=== PATIENT | female | born 1985 | race Caucasian/White ===

== ENCOUNTER 2017-10-24 18:01 | Emergency (ER) | payer MEDICAID ==
--- NOTE | 2017-10-24 19:00 | ER Document Report ---
ED Medical Screen (RME) - General Chief Complaint: Sore Throat Stated Complaint: SORE THROAT/ FEVERS Time Seen by Provider: 10/24/17 18:57 Notes: pt c/o sore throat, fever and vomiting x 2 days. Hx strep, is supposed to get tonsillectomy but is afraid to have done. Took zofran at home. I have greeted and performed a rapid initial assessment of this patient. A comprehensive ED assessment and evaluation of the patient, analysis of test results and completion of the medical decision making process will be conducted by additional ED providers. TRAVEL OUTSIDE OF THE [place] IN LAST 30 DAYS: No - Related Data Allergies/Adverse Reactions: Amphetamine Aspartate * [From Adderall] Allergy (Verified 10/24/17 18:58) THROAT CLOSED UP amphetamine sulfate [From Adderall] Allergy (Verified 10/24/17 18:58) THROAT CLOSED UP dextroamphetamine [From Adderall] Allergy (Verified 10/24/17 18:58) THROAT CLOSED UP Past Medical History - Past Medical History Cardiac Medical History: Denies: Hx Heart Attack, Hx Hypertension Pulmonary Medical History: Reports: Hx Pneumonia - PTSD Denies: Hx Asthma Neurological Medical History: Reports: Hx Seizures - Epilepsy GI Medical History: Denies: Hx Hepatitis, Hx Hiatal Hernia, Hx Ulcer Psychiatric Medical History: Reports: Hx Attention Deficit Hyperactivity Disorder Infectious Medical History: Denies: Hx Hepatitis Past Surgical History: Denies: Hx Hysterectomy, Hx Mastectomy, Hx Open Heart Surgery, Hx Pacemaker - Immunizations Hx Diphtheria, Pertussis, Tetanus Vaccination: No Physical Exam - Vital signs Vitals: Temp Pulse Resp BP Pulse Ox 100.6 F H 121 H 18 125/92 H 98 10/24/17 18:09 10/24/17 18:09 10/24/17 18:09 10/24/17 18:09 10/24/17 18:09 Course - Vital Signs Vital signs: Temp Pulse Resp BP Pulse Ox 100.6 F H 121 H 18 125/92 H 98 10/24/17 18:09 10/24/17 18:09 10/24/17 18:09 10/24/17 18:09 10/24/17 18:09
[2017-10-24] MEDS ORDERED: ONDANSETRON 4 MG TAB.RAPDIS PO ONE (19:50)
[2017-10-24] MEDS ORDERED: NORMAL SALINE 1000 ML 1,000 ML IV ONE (20:25)
[2017-10-24] MEDS ORDERED: DEXAMETHASONE SOD PHOS INJ 10 MG/1 ML VIAL IV ONE (20:27)
[2017-10-24] MEDS ORDERED: CLINDAMYCIN 900 MG/D5W RTU 50 ML IV ONE (20:27)
[2017-10-24] MEDS ORDERED: MORPHINE SULFATE 10 MG/ML INJ IV ONE (20:27)
[2017-10-24] MEDS ORDERED: PROMETHAZINE HCL INJ 25 MG/1 ML VIAL IV ONE (20:28)
[2017-10-24 20:53] LABS: ABSOLUTE BASOPHILS # (AUTO) 0.1 10^3/uL (0.0-0.2); ABSOLUTE MONOCYTES (AUTO) 0.6 10^3/uL (0.1-1.4); ABSOLUTE NEUT (AUTO) 8.2 10^3/uL (1.7-8.2); BASOPHILS % (AUTO) 0.5 % (0-2); HEMATOCRIT 42.6 % (36.0-47.0); HEMOGLOBIN 14.5 g/dL (12.0-15.5); HGB HCT DIFFERENCE 0.9; LYMPHOCYTES % (AUTO) 18.5 % (13-45); MEAN CORPUSCULAR HEMOGLOBIN 29.3 pg (27.0-33.4); MEAN CORPUSCULAR HGB CONC 34.2 g/dL (32.0-36.0); MEAN CORPUSCULAR VOLUME 86 fl (80-97); MONOCYTES % (AUTO) 5.5 % (3-13); RED BLOOD COUNT 4.96 10^6/uL (3.72-5.28); RED CELL DISTRIBUTION WIDTH 14.6 % (11.5-14.0); SEGMENTED NEUTROPHILS % (AUTO) 75.5 % (42-78); WHITE BLOOD COUNT 10.9 10^3/uL (4.0-10.5)
[2017-10-24 21:07] LABS: ALANINE AMINOTRANSFERASE 40 U/L (9-52); ALKALINE PHOSPHATASE 100 U/L (38-126); ANION GAP 15 (5-19); ASPARTATE AMINO TRANSFERASE 25 U/L (14-36); BILIRUBIN,DIRECT 0.4 mg/dL (0.0-0.4); BILIRUBIN,TOTAL 0.4 mg/dL (0.2-1.3); BLOOD UREA NITROGEN 9 mg/dL (7-20); CALCIUM 10.1 mg/dL (8.4-10.2); CARBON DIOXIDE 25 mmol/L (22-30); CHLORIDE 101 mmol/L (98-107); CREATININE RESULT 0.68 mg/dL (0.52-1.25); GLUCOSE 90 mg/dL (75-110); POTASSIUM 4.2 mmol/L (3.6-5.0); SODIUM 140.7 mmol/L (137-145); TOTAL PROTEIN 8.4 g/dL (6.3-8.2)
--- NOTE | 2017-10-24 21:48 | RADIOLOGY REPORT (SQ) ---
EXAM DESCRIPTION: CT SOFT TISSUE NECK WITH COMPLETED DATE/TIME: 10/24/2017 9:34 pm REASON FOR STUDY: right sided peritonsilar abscess COMPARISON: None. TECHNIQUE: Post IV contrasted scanning from skull base through lung apices with review of bone, soft tissue and lung windows. Reconstructed coronal and sagittal MPR images reviewed. All images stored on PACS. All CT scanners at this facility use dose modulation, iterative reconstruction, and/or weight based d osing when appropriate to reduce radiation dose to as low as reasonably achievable (ALARA). [facility]: Dose Right [facility]: CareDose [facility]: Dose Right [facility]: Teradose 4D [facility]: [place] [facility] [place] CONTRAST TYPE AND DOSE: contrast/concentration: Isovue 370.00 mg/ml; Total Contrast Delivered: 75.0 ml; Total Saline Delivered: 55.0 ml RENAL FUNCTION: Creatinine 0.68. RADIATION DOSE: CT Rad equipment meets quality standard of care and radiation dose reduction techniq ues were employed. CTDIvol: 17.1 mGy. DLP: 582 mGy-cm. . LIMITATIONS: None. FINDINGS: SKULL BASE: Intact. MAJOR SALIVARY GLANDS: No solid or cystic masses. No inflammatory changes. LYMPHADENOPATHY: Bilateral adenopathy, right greater than left, primarily submandibular region and up per cervical chains. Largest lymph node in the right submandibular region measures 2.4 cm and on the left measures 1.5 cm. MUCOSAL MASSES OR ASYMMETRY: No mucosal masses or asymmetry. LARYNX/CORDS: No abnormal findings. VASCULAR STRUCTURES: The major vessels are patent. LUNG APICES: Clear. BONES: Intact. THYROID: Normal size. No masses. PARANASAL SINUSES: Clear. OTHER: No other significant finding. IMPRESSION: BILATERAL ADENOPATHY, RIGHT GREATER THAN LEFT. NO ABSCESS VISUALIZED. TECHNICAL DOCUMENTATION: JOB ID: [id number] Quality ID # [id number]: Final reports with documentation of one or more dose reduction techniques (e.g., Au tomated exposure control, adjustment of the mA and/or kV according to patient size, use of iterative reconstruction technique) 2010 [employer]- All Rights Reserved
--- NOTE | 2017-10-24 22:58 | ER Document Report ---
ED General - General Chief Complaint: Sore Throat Stated Complaint: SORE THROAT/ FEVERS Time Seen by Provider: 10/24/17 18:57 Mode of Arrival: Ambulatory Information source: Patient, Relative Notes: Patient is a 32-year-old morbidly obese white female comes emergency room with a 2 day onset of severe throat pain. She also states that she is swelling under her right chin and down her throat. Patient has a strong history of tonsillitis she has had multiple cases of strep throat. This 1 came on so suddenly patient was caught by surprise. She denies any other problems at this time and denies any problems with holding her own saliva. TRAVEL OUTSIDE OF THE [place] IN LAST 30 DAYS: No - HPI Patient complains to provider of: Severe sore throat difficulty swallowing Onset: Other - 2 days worse the past few hours Onset/Duration: Sudden, Worse Quality of pain: Sharp, Throbbing Severity: Severe Pain Level: 4 Associated symptoms: Nausea, Rhinnorhea, Sore throat Exacerbated by: Other Similar symptoms previously: Yes Recently seen / treated by doctor: No - Related Data Allergies/Adverse Reactions: Amphetamine Aspartate * [From Adderall] Allergy (Verified 10/24/17 18:58) THROAT CLOSED UP amphetamine sulfate [From Adderall] Allergy (Verified 10/24/17 18:58) THROAT CLOSED UP dextroamphetamine [From Adderall] Allergy (Verified 10/24/17 18:58) THROAT CLOSED UP Past Medical History - General Information source: Patient, Friend Last Menstrual Period: Current - Social History Smoking Status: Current Every Day Smoker Cigarette use (# per day): Yes Chew tobacco use (# tins/day): No Smoking Education Provided: Yes Frequency of alcohol use: None Drug Abuse: None Family History: Reviewed & Not Pertinent Patient has suicidal ideation: No Patient has homicidal ideation: No - Past Medical History Cardiac Medical History: Denies: Hx Heart Attack, Hx Hypertension Pulmonary Medical History: Reports: Hx Pneumonia - PTSD Denies: Hx Asthma Neurological Medical History: Reports: Hx Seizures - Epilepsy Renal/ Medical History: Denies: Hx Peritoneal Dialysis GI Medical History: Denies: Hx Hepatitis, Hx Hiatal Hernia, Hx Ulcer Psychiatric Medical History: Reports: Hx Attention Deficit Hyperactivity Disorder, Hx Bipolar Disorder Infectious Medical History: Denies: Hx Hepatitis Past Surgical History: Denies: Hx Hysterectomy, Hx Mastectomy, Hx Open Heart Surgery, Hx Pacemaker - Immunizations Hx Diphtheria, Pertussis, Tetanus Vaccination: No Review of Systems - Review of Systems Constitutional: Chills, Fever, Malaise EENT: Difficulty swallowing Cardiovascular: No symptoms reported Respiratory: No symptoms reported Gastrointestinal: No symptoms reported Genitourinary: No symptoms reported Female Genitourinary: No symptoms reported Musculoskeletal: No symptoms reported, Muscle pain Skin: No symptoms reported Hematologic/Lymphatic: No symptoms reported Neurological/Psychological: No symptoms reported -: Yes All other systems reviewed and negative Physical Exam - Vital signs Vitals: Temp Pulse Resp BP Pulse Ox 100.6 F H 121 H 18 125/92 H 98 10/24/17 18:10/24/17 18:10/24/17 18:10/24/17 18:10/24/17 18:09 - General General appearance: Alert, Other - Ill-appearing In distress: Mild - HEENT Head: Normocephalic, Atraumatic Eyes: Normal External canal: Normal Tympanic membrane: Bulging Nasal: Normal, Purulent discharge Mucous membranes: Moist Pharynx: Peritonsillar abscess, Tonsillar hypertrophy, Other - examination patient's posterior pharynx shows that she has a severely enlarged right tonsil with multiple exudate across it. It is at least 2 times bigger than the left side. Left side has mild erythema but no exudate noted. Palpation of patient' s right side of her face shows a hardening down into the lower portion of the neck and subungually. Patient does have a patent airway at present. Neck: Anterior cervical chain, Lymphadenopathy - Respiratory Respiratory status: No respiratory distress Chest status: Nontender Breath sounds: Normal. No: Decreased air movement, Nonproductive cough, Productive cough, Rales, Rhonchi, Stridor, Wheezing, Other Chest palpation: Normal - Cardiovascular Rhythm: Tachycardia - Neurological Neuro grossly intact: Yes Cognition: Normal Orientation: AAOx4 Amado Coma Scale Eye Opening: Spontaneous [place] Coma Scale Verbal: Oriented Speech: Normal - Skin Skin Temperature: Warm Skin Moisture: Dry Skin Color: Normal, [place] Course - Vital Signs Vital signs: Temp Pulse Resp BP Pulse Ox 100.6 F H 121 H 18 125/92 H 98 10/24/17 18:10/24/17 18:10/24/17 18:10/24/17 18:10/24/17 18:09 - Laboratory Result Diagrams: 10/24/17 20:39 10/24/17 20:39 Laboratory results interpreted by me: 10/24/17 10/24/17 20:39 20:39 WBC 10.9 H RDW 14.6 H Total Protein 8.4 H - Diagnostic Test Radiology reviewed: Reports reviewed - CT patient's neck shows that she has bilateral adenopathy of the right greater than left, primarily sub-mandibular region and upper cervical chains. Largest lymph node in the right submandibular region is 2.4 cm and on the left measures 1.5 cm there is no overt abscess at this time. - Transfer of Care Notes: 10/24/17 23:00 I discussed findings with and we will leave patient on steroids. Given patient is only had 2 days of possible growth of the right tonsillar exudate. His has a history of strep 4-5 times a year I will go ahead and leave her on the amoxicillin currently along with the Decadron. She has been instructed to return to ER if she has any concerns or problems. Discharge - Discharge Clinical Impression: Lymphadenopathy of head and neck Condition: Good Disposition: HOME, SELF-CARE Instructions: Sore Throat ([facility]), Lymphadenopathy ([facility]) Additional Instructions: Home and continue taking the steroids as prescribed. We will continue with the antibiotics as we discussed as well. Highly suggest you contact your primary care provider and follow-up with them tomorrow or the next day. Should you have any concerns about maintaining your airway or getting short of breath or not handling her secretions return to ER for a recheck. Prescriptions: Amoxicillin 875 mg PO BID #20 tablet Methylprednisolone [Medrol Dosepack (4 mg/Tab) 21 Tab/Dosepak] 4 mg PO ASDIR PRN #21 tab.ds.pk PRN Reason: Forms: Elevated Blood Pressure, Smoking Cessation Education, Parent Work Note
[2017-10-24 23:12] VITALS: BP 128/78
== END 2017-10-24 23:24 | disposition home or self-care (01) ==
LOC: ER 18:01
DX: R59.1 Generalized enlarged lymph nodes (principal); J02.9 Acute pharyngitis, unspecified; R50.9 Fever, unspecified; F17.210 Nicotine dependence, cigarettes, uncomplicated
CPT/HCPCS: 99283; 96361; 96375; 96365; 36415; 87040; 87070; 87880; 84703; 85025; 80053; 70491; S0119; J2270; J2550; J7030; J1100

== ENCOUNTER 2017-12-15 21:40 | Emergency (ER) | payer MEDICAID ==
[2017-12-15] MEDS ORDERED: NORMAL SALINE 1000 ML 1,000 ML IV ONE (22:34)
[2017-12-15] MEDS ORDERED: PROCHLORPERAZINE EDISYLATE INJ 10 MG/2 ML VIAL IV ONE (22:34)
--- NOTE | 2017-12-15 22:56 | ER Document Report ---
ED Seizure - General Chief Complaint: Probable Seizure Stated Complaint: POSSIBLE SEIZURES Time Seen by Provider: 12/15/17 22:32 Mode of Arrival: Medic Information source: Patient Notes: Patient is a 32-year-old female with epilepsy who presents to the ER today for multiple seizures this afternoon. Patient apparently was around some children who were playing with a disco ball that set off seizures per friend. Patient is not take her Keppra as prescribed per mom. Patient apparently according to friend had 5 seizures that she states for longer than a minute each with generalized shaking and eyes rolling back in the back of her head. Patient denies that she urinated or had a bowel movement on herself. Patient is arousable and complains of a mild headache and being tired. - Related Data Allergies/Adverse Reactions: Amphetamine Aspartate * [From Adderall] Allergy (Verified 10/24/17 18:58) THROAT CLOSED UP amphetamine sulfate [From Adderall] Allergy (Verified 10/24/17 18:58) THROAT CLOSED UP dextroamphetamine [From Adderall] Allergy (Verified 10/24/17 18:58) THROAT CLOSED UP Past Medical History - General Information source: Patient, Friend - Social History Smoking Status: Unknown if Ever Smoked Family History: Reviewed & Not Pertinent Patient has suicidal ideation: No Patient has homicidal ideation: No - Past Medical History Cardiac Medical History: Denies: Hx Heart Attack, Hx Hypertension Pulmonary Medical History: Reports: Hx Pneumonia - PTSD Denies: Hx Asthma Neurological Medical History: Reports: Hx Seizures - Epilepsy Renal/ Medical History: Denies: Hx Peritoneal Dialysis GI Medical History: Denies: Hx Hepatitis, Hx Hiatal Hernia, Hx Ulcer Psychiatric Medical History: Reports: Hx Attention Deficit Hyperactivity Disorder, Hx Bipolar Disorder Infectious Medical History: Denies: Hx Hepatitis Past Surgical History: Denies: Hx Hysterectomy, Hx Mastectomy, Hx Open Heart Surgery, Hx Pacemaker - Immunizations Hx Diphtheria, Pertussis, Tetanus Vaccination: No Review of Systems - Review of Systems Constitutional: No symptoms reported EENT: No symptoms reported Cardiovascular: No symptoms reported Respiratory: No symptoms reported Gastrointestinal: No symptoms reported Genitourinary: No symptoms reported Female Genitourinary: No symptoms reported Musculoskeletal: No symptoms reported Skin: No symptoms reported Hematologic/Lymphatic: No symptoms reported Neurological/Psychological: See HPI Physical Exam - Vital signs Vitals: Pulse Ox 99 12/15/17 22:06 - Notes Notes: PHYSICAL EXAMINATION: GENERAL: Tired appearing, but in no acute distress. HEAD: Atraumatic, normocephalic. EYES: Pupils equal round and reactive to light, extraocular movements intact, sclera anicteric, conjunctiva are normal. NECK: Normal range of motion, supple without lymphadenopathy LUNGS: CTAB and equal. No wheezes rales or rhonchi. HEART: Regular rate and rhythm without murmurs ABDOMEN: Soft, no tenderness. No guarding, no rebound BACK: no vertebral tenderness, normal ROM GI/: no CVA tenderness EXTREMITIES: Normal range of motion, no pitting edema. No cyanosis. NEUROLOGICAL: Cranial nerves grossly intact. Normal sensory/motor exams. PSYCH: Normal mood, normal affect. SKIN: Warm, Dry, normal turgor, no rashes or lesions noted Course - Re-evaluation Re-evalutation: 12/15/17 23:03 Patient refuses any blood work, medication, IV fluids or any other evaluation today, she states over and over again "I just want to go home, let me go home." As patient is a known epileptic who does not take her medication, I did advise her that she needs to take her Keppra which she refuses to do in front of mom and friend. I cannot force patient to do anything she does not want to do. Patient is stable for discharge with normal vital signs. I have not witnessed any seizure here. - Vital Signs Vital signs: Temp Pulse Resp BP Pulse Ox 19 113/86 H 99 12/15/17 22:07 12/15/17 22:07 12/15/17 22:07 Discharge - Discharge Clinical Impression: Seizure Condition: Stable Disposition: HOME, SELF-CARE Additional Instructions: Return immediately for any new or worsening symptoms. Follow up with primary care provider, call tomorrow to make followup appointment. Referrals: CHRISTIAN TIM FNP-C [Primary Care Provider] - Follow up as needed
[2017-12-15 23:13] VITALS: BP 104/75
== END 2017-12-15 23:14 | disposition home or self-care (01) ==
LOC: ER 21:40
DX: R56.9 Unspecified convulsions (principal); R51 Headache
CPT/HCPCS: 99284

== ENCOUNTER 2018-02-08 18:39 | Emergency (ER) | payer MEDICAID ==
--- NOTE | 2018-02-08 20:12 | ER Document Report ---
ED Medical Screen (RME) - General Chief Complaint: Laceration Stated Complaint: LACERATION TO LEFT ARM Time Seen by Provider: 02/08/18 19:51 Mode of Arrival: Ambulatory Information source: Patient Notes: Patient presents with laceration to dorsal aspect of left arm. Patient has multiple superficial lacerations adjacent to this. Patient states that she washed her dog today receiving scratches to the arm, patient also states that her cat scratched her, and patient states that she was sharpening a knife improperly which caused a laceration to her arm. Patient's wounds are inconsistent with the explanation that she is providing and provider made this comment to pt and her family. Patient immediately stated "I am leaving". Patient significant other advised patient that she should stay as she will likely need sutures, patient at present agreeable to stay for wound management. This provider left room notifying nurse and security staff that patient will likely need to be IVC and is a flight risk. I have greeted and performed a rapid initial assessment of this patient. A comprehensive ED assessment and evaluation of the patient, analysis of test results and completion of the medical decision making process will be conducted by additional ED providers. TRAVEL OUTSIDE OF THE [place] IN LAST 30 DAYS: No - Related Data Allergies/Adverse Reactions: Amphetamine Aspartate * [From Adderall] Allergy (Verified 10/24/17 18:58) THROAT CLOSED UP amphetamine sulfate [From Adderall] Allergy (Verified 10/24/17 18:58) THROAT CLOSED UP dextroamphetamine [From Adderall] Allergy (Verified 10/24/17 18:58) THROAT CLOSED UP Past Medical History - Social History Chew tobacco use (# tins/day): No Frequency of alcohol use: None Drug Abuse: None - Past Medical History Cardiac Medical History: Denies: Hx Heart Attack, Hx Hypertension Pulmonary Medical History: Reports: Hx Pneumonia - PTSD Denies: Hx Asthma Neurological Medical History: Reports: Hx Seizures - Epilepsy Renal/ Medical History: Denies: Hx Peritoneal Dialysis GI Medical History: Denies: Hx Hepatitis, Hx Hiatal Hernia, Hx Ulcer Psychiatric Medical History: Reports: Hx Attention Deficit Hyperactivity Disorder, Hx Bipolar Disorder Infectious Medical History: Denies: Hx Hepatitis Past Surgical History: Denies: Hx Hysterectomy, Hx Mastectomy, Hx Open Heart Surgery, Hx Pacemaker - Immunizations Hx Diphtheria, Pertussis, Tetanus Vaccination: No Physical Exam - Vital signs Vitals: Temp Pulse Resp BP Pulse Ox 98.3 F 100 20 144/92 H 98 02/08/18 18:46 02/08/18 18:46 02/08/18 18:46 02/08/18 18:46 02/08/18 18:46 - Skin Skin irregularity: Laceration - Laceration to dorsal aspect of left forearm Course - Re-evaluation Re-evalutation: 02/08/18 20:[address] Young regarding patient presentation, agrees with plan for IVC. 02/08/18 20:28 Dr carranza at bedside for exam. Family at bedside now state that they were with patient whenever she accidentally cut her arm and states that a dog did bump her causing her to scratch her arm. Patient did not initially report this part of the story, family did not initially state that they were with her when this happened. Family states that they were not given enough time to fully explain the story. Patient and family state that patient did not attempt to cut her arm intentionally. Dr. Carranza assumed care of pt. - Vital Signs Vital signs: Temp Pulse Resp BP Pulse Ox 98.3 F 100 20 144/92 H 98 02/08/18 18:46 02/08/18 18:46 02/08/18 18:46 02/08/18 18:46 02/08/18 18:46
[2018-02-08] MEDS ORDERED: DIPH/PERTUSS(ACELL)/TETANUS VAC/PF 0.5 ML SYR (>=10YO) IM ONE (20:36)
[2018-02-08] MEDS ORDERED: LIDOCAINE 2% INJ (20 MG/ML) 20 ML MDV INJ ONE (20:37)
--- NOTE | 2018-02-08 22:28 | ER Document Report ---
ED Wound - General Chief Complaint: Laceration Stated Complaint: LACERATION TO LEFT ARM Time Seen by Provider: 02/08/18 19:51 Mode of Arrival: Ambulatory Notes: History of present illness-32 years old female accidentally cut her left forearm with a knife and sustained a 5 cm linear laceration therefore presented to the ED REVIEW OF SYSTEMS: CONSTITUTIONAL : Denies fever, chills, or sweats. Denies recent illness. EENT: Denies eye, ear, throat, or mouth pain or symptoms. Denies nasal or sinus congestion or discharge. Denies throat, tongue, or mouth swelling or difficulty swallowing. CARDIOVASCULAR: Denies chest pain. Denies palpitations or racing or irregular heart beat. Denies ankle edema. RESPIRATORY: Denies cough, cold, or chest congestion. Denies shortness of breath, difficulty breathing, or wheezing. GASTROINTESTINAL: Denies abdominal pain or distention. Denies nausea, vomiting , or diarrhea. Denies blood in vomitus, stools, or per rectum. Denies black, tarry stools. Denies constipation. GENITOURINARY: Denies difficulty urinating, painful urination, burning, frequency, blood in urine, or discharge. FEMALE GENITOURINARY: Denies vaginal bleeding, heavy or abnormal periods, irregular periods. Denies vaginal discharge or odor. MUSCULOSKELETAL: Denies back or neck pain or stiffness. Denies joint pain or swelling. SKIN: Denies rash, lesions or sores. HEMATOLOGIC : Denies easy bruising or bleeding. LYMPHATIC: Denies swollen, enlarged glands. NEUROLOGICAL: Denies confusion or altered mental status. Denies passing out or loss of consciousness. Denies dizziness or lightheadedness. Denies headache. Denies weakness or paralysis or loss of use of either side. Denies problems with gait or speech. Denies sensory loss, numbness, or tingling. Denies seizures. PSYCHIATRIC: Denies anxiety or stress. Denies depression, suicidal ideation, or homicidal ideation. ALL OTHER SYSTEMS REVIEWED AND NEGATIVE. PHYSICAL EXAMINATION: GENERAL: Well-appearing, well-nourished and in no acute distress. Morbidly obese HEAD: Atraumatic, normocephalic. EYES: Pupils equal round and reactive to light, extraocular movements intact, conjunctiva are normal. ENT: Nares patent, oropharynx clear without exudates. Moist mucous membranes. NECK: Normal range of motion, supple without lymphadenopathy LUNGS: Breath sounds clear to auscultation bilaterally and equal. No wheezes rales or rhonchi. HEART: Regular rate and rhythm without murmurs ABDOMEN: Soft, nontender, nondistended abdomen. No guarding, no rebound. No masses appreciated. Female : deferred Musculoskeletal: Normal range of motion, no pitting or edema. No cyanosis. NEUROLOGICAL: Cranial nerves grossly intact. Normal speech, normal gait. Normal sensory, motor exams PSYCH: Normal mood, normal affect. SKIN: 5 cm linear laceration over the left forearm with full skin thickness, no underlying tissues involved Dictation was performed using [employer] voice recognition software TRAVEL OUTSIDE OF THE [place] IN LAST 30 DAYS: No - HPI Patient complains to provider of: Laceration Occurred: Just prior to arrival - Related Data Allergies/Adverse Reactions: Amphetamine Aspartate * [From Adderall] Allergy (Verified 10/24/17 18:58) THROAT CLOSED UP amphetamine sulfate [From Adderall] Allergy (Verified 10/24/17 18:58) THROAT CLOSED UP dextroamphetamine [From Adderall] Allergy (Verified 10/24/17 18:58) THROAT CLOSED UP Past Medical History - General Information source: Patient - Social History Smoking Status: Current Every Day Smoker Chew tobacco use (# tins/day): No Frequency of alcohol use: None Drug Abuse: None Family History: Reviewed & Not Pertinent Patient has suicidal ideation: No Patient has homicidal ideation: No - Past Medical History Cardiac Medical History: Denies: Hx Heart Attack, Hx Hypertension Pulmonary Medical History: Reports: Hx Pneumonia - PTSD Denies: Hx Asthma Neurological Medical History: Reports: Hx Seizures - Epilepsy Renal/ Medical History: Denies: Hx Peritoneal Dialysis GI Medical History: Denies: Hx Hepatitis, Hx Hiatal Hernia, Hx Ulcer Psychiatric Medical History: Reports: Hx Attention Deficit Hyperactivity Disorder, Hx Bipolar Disorder Infectious Medical History: Denies: Hx Hepatitis Past Surgical History: Denies: Hx Hysterectomy, Hx Mastectomy, Hx Open Heart Surgery, Hx Pacemaker - Immunizations Hx Diphtheria, Pertussis, Tetanus Vaccination: No Review of Systems - Review of Systems Notes: As per history of complain Physical Exam - Vital signs Vitals: Temp Pulse Resp BP Pulse Ox 98.3 F 100 20 144/92 H 98 02/08/18 18:46 02/08/18 18:46 02/08/18 18:46 02/08/18 18:46 02/08/18 18:46 Course - Vital Signs Vital signs: Temp Pulse Resp BP Pulse Ox 98.7 F 90 16 117/69 98 02/08/18 22:41 02/08/18 22:41 02/08/18 22:41 02/08/18 22:41 02/08/18 22:41 Procedures - Laceration/Wound Repair Left Distal Arm Time completed: 10:30 Wound length (cm): 4.0 Wound's Depth, Shape: Superficial Laceration pre-procedure: Sterile PPE donned Anesthetic type: 2% Lidocaine Volume Anesthetic (mLs): 5 Wound explored: No foreign body removed Wound Debrided: Moderate Wound Repaired With: Sutures Suture Size/Type: Vicryl Layer Closure?: No Deep Layer Suture Size/Type: 3:0 Post-procedure wound care: Sterile dressing applied Post-procedure NV exam normal: Yes Complications: No Discharge - Discharge Clinical Impression: Laceration Disposition: HOME, SELF-CARE Instructions: Laceration Care ([facility])
[2018-02-08 22:42] VITALS: BP 117/69
== END 2018-02-08 22:43 | disposition home or self-care (01) ==
LOC: ER 18:39
DX: S51.812A Laceration without foreign body of left forearm, initial encounter (principal); W26.0XXA Contact with knife, initial encounter; Y93.89 Activity, other specified; F17.200 Nicotine dependence, unspecified, uncomplicated; Z88.8 Allergy status to other drugs, medicaments and biological substances
CPT/HCPCS: 99283; 12002; J3490

== ENCOUNTER 2018-03-16 16:12 | Emergency (ER) | payer MEDICAID ==
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
[2018-03-16 18:26] LABS: ABSOLUTE EOSINOPHILS # (AUTO) 0.1 10^3/uL (0.0-0.6); ABSOLUTE LYMPHOCYTES (AUTO) 2.5 10^3/uL (0.5-4.7); ABSOLUTE MONOCYTES (AUTO) 0.7 10^3/uL (0.1-1.4); ABSOLUTE NEUT (AUTO) 3.4 10^3/uL (1.7-8.2); BASOPHILS % (AUTO) 0.7 % (0-2); EOSINOPHILS % (AUTO) 1.2 % (0-6); HEMATOCRIT 40.6 % (36.0-47.0); HEMOGLOBIN 13.6 g/dL (12.0-15.5); LYMPHOCYTES % (AUTO) 37.4 % (13-45); MEAN CORPUSCULAR HEMOGLOBIN 28.8 pg (27.0-33.4); MEAN CORPUSCULAR HGB CONC 33.4 g/dL (32.0-36.0); MEAN CORPUSCULAR VOLUME 86 fl (80-97); MONOCYTES % (AUTO) 10.5 % (3-13); PLATELET COUNT 225 10^3/uL (150-450); RED BLOOD COUNT 4.71 10^6/uL (3.72-5.28); RED CELL DISTRIBUTION WIDTH 14.6 % (11.5-14.0); SEGMENTED NEUTROPHILS % (AUTO) 50.2 % (42-78); TOTAL CELLS COUNTED % (AUTO) 100 %; WHITE BLOOD COUNT 6.7 10^3/uL (4.0-10.5)
--- NOTE | 2018-03-16 18:43 | RADIOLOGY REPORT (SQ) ---
EXAM DESCRIPTION: CT HEAD WITHOUT COMPLETED DATE/TIME: 03/16/2018 6:26 pm REASON FOR STUDY: fall COMPARISON: 2014 TECHNIQUE: Axial images acquired through the brain without intravenous contrast. Images reviewed wi th bone, brain and subdural windows. Additional sagittal and coronal reconstructions were generated. Images stored on PACS. All CT scanners at this facility use dose modulation, iterative reconstruction, and/or weight based d osing when appropriate to reduce radiation dose to as low as reasonably achievable (ALARA). [facility]: Dose Right [facility]: CareDose [facility]: Dose Right [facility]: Teradose 4D [facility]: Smart Playhem RADIATION DOSE: CT Rad equipment meets quality standard of care and radiation dose reduction techniq ues were employed. CTDIvol: 53.2 mGy. DLP: 937 mGy-cm. mGy. LIMITATIONS: None. FINDINGS: VENTRICLES: Normal size and contour. CEREBRUM: No masses. No hemorrhage. No midline shift. No evidence for acute infarction. Normal gra y/white matter differentiation. No areas of low density in the white matter. CEREBELLUM: No masses. No hemorrhage. No alteration of density. No evidence for acute infarction. EXTRAAXIAL SPACES: No fluid collections. No masses. ORBITS AND GLOBE: No intra- or extraconal masses. Normal contour of globe without masses. CALVARIUM: No fracture. PARANASAL SINUSES: No fluid or mucosal thickening. SOFT TISSUES: No mass or hematoma. OTHER: No other significant finding. IMPRESSION: NORMAL BRAIN CT WITHOUT CONTRAST. EVIDENCE OF ACUTE STROKE: NO. COMMENT: Quality ID # [id number]: Final reports with documentation of one or more dose reduction techniques (e.g., Automated exposure control, adjustment of the mA and/or kV according to patient size, use of iterative reconstruction technique) TECHNICAL DOCUMENTATION: JOB ID: [id number] [employer]- All Rights Reserved Reading location - IP/workstation name: [email or web address]
[2018-03-16 18:48] LABS: ALANINE AMINOTRANSFERASE 41 U/L (9-52); ALBUMIN 4.6 g/dL (3.5-5.0); ALKALINE PHOSPHATASE 75 U/L (38-126); ANION GAP 15 (5-19); ASPARTATE AMINO TRANSFERASE 34 U/L (14-36); BILIRUBIN,DIRECT 0.3 mg/dL (0.0-0.4); BILIRUBIN,TOTAL 0.6 mg/dL (0.2-1.3); BLOOD UREA NITROGEN 14 mg/dL (7-20); CALCIUM 9.9 mg/dL (8.4-10.2); CARBON DIOXIDE 24 mmol/L (22-30); CHLORIDE 106 mmol/L (98-107); GLUCOSE 111 mg/dL (75-110); POTASSIUM 3.3 mmol/L (3.6-5.0); SODIUM 145.2 mmol/L (137-145); TOTAL PROTEIN 7.6 g/dL (6.3-8.2)
[2018-03-16 18:49] LABS: ACETAMINOPHEN < 10 ug/mL (10-30); ALCOHOL < 10 mg/dL (NONE DETECTED); SALICYLATE < 1.0 mg/dL (2.0-20.0)
[2018-03-16] MEDS ORDERED: POTASSIUM CHLORIDE 20 MEQ/15 ML UDCUP PO ONE (20:09)
[2018-03-17 04:17] LABS: APPEARANCE,URINE SLIGHTLY-CLOUDY; BILIRUBIN,URINE NEGATIVE (NEGATIVE); GLUCOSE, URINE NEGATIVE (NEGATIVE); KETONES,URINE NEGATIVE (NEGATIVE); LEUKOCYTE ESTERASE,URINE NEGATIVE (NEGATIVE); NITRITE,URINE NEGATIVE (NEGATIVE); PROTEIN,URINE NEGATIVE (NEGATIVE); URINE SPECIFIC GRAVITY 1.024
[2018-03-17 04:18] LABS: COLOR,URINE DARK YELLOW
[2018-03-17 04:31] LABS: URINE BARBITURATES SCREEN NEGATIVE; URINE BENZODIAZEPINES SCREEN UNCONFIRMED POSITIVE; URINE COCAINE SCREEN NEGATIVE; URINE MARIJUANA (THC) SCREEN UNCONFIRMED POSITIVE; URINE METHADONE SCREEN NEGATIVE; URINE PHENCYCLIDINE SCREEN NEGATIVE
[2018-03-17 09:44] VITALS: BP 98/65
--- NOTE | 2018-03-17 10:07 | PSYCHOLOGICAL NOTE ---
Psych Note - Psych Note Psych Note: Reason for consult: substance abuse;overdose 32-year-old female with a history of epilepsy, PTSD, bipolar disorder presents via EMS from home after patient had multiple witnessed seizures. Upon arrival patient is uncooperative. She is somnolent but abusable and when awoken is uncooperative, refusing to answer questions. Family who is with the patient states that they believe the patient has taken over 32 Xanax is in the last 24 hours. The of the patient states that Xanax causes her to have seizures. Patient is a known drug user currently on Suboxone. She denies intentional overdose or suicidal ideation. Patient takes gabapentin, BuSpar and Adderall according to the family. Patient disclosed she had a seizure last night and denies taking any Xanax or other medications. Patient refuses to speak about a possible substance abuse but states she goes to [facility] for Suboxone. Patient denies ever being into rehab or going into inpatient psychiatric treatment. Patient reiterates that she has a "seizure disorder" which resulted in last night's events. Patient states "I do not want to hurt myself or others, can I go home...my is on her way." Patient is alert and orientated to person, place, time and circumstance. Mood is euthymic with congruent affect. Clinician notes patient refuses to speak about possible substance abuse history however she is currently receiving Suboxone from [facility]. Patient's family disclosed that she had taken Xanax and is a known drug abuser. Patient denies suicidal and homicidal ideation. Delusions are absent behaviors congruent with an intact reality based presentation i.e. organized and linear thought process. Conversational speech was within normal rate, tone and prosody. Eye contact was well-maintained. Intellectual abilities appear to be within the average range. Attention and concentration are good. Insight, judgment, impulse control are historically poor due to substance abuse. 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 Patient does not meet IVC criteria per [place] GS 122C. Patient denies suicidal and homicidal ideation. Patient abuses multiple substance and took too many Xanax per family which is known to cause her seizures. Patient disclosed she has an outpatient provider with [facility] [place]. Patient's toxicology screen indicated patient has multiple substances in her system to include possible methamphetamine. Patient is calm and engages with clinician but refused to talk abut drug abuse, stating is was just a seizure; "I was not trying to hurt myself, it was a seizure." Patient's agrees to be part of discharge plan to ensure on access to medication and weapons and follow through her her mental health and substance abuse treatment. Dr. Pak was consulted and the care and management as patient; attending physician is agreement with augmentations and disposition.
--- NOTE | 2018-03-17 10:32 | ER Document Report ---
Doctor's Note Notes: 03/17/18 10:31 Rounds: Chart reviewed and patient interviewed. Patient being evaluated for multiple seizures prior to admission yesterday. Also aggressive behavior. Patient has a history of seizure disorder for which she sees a local neurologist. Also history of bipolar disorder and PTSD. Lab studies are all essentially normal except for potassium of 3.3 for which the patient was given 40 mEq p.o. Also, her drug screen is positive for benzos, amphetamines, and marijuana. Vital signs were not taken or recorded during the night. Her blood pressure this morning is 98/65. Other vital signs are normal. Patient is sitting up in bed awake and alert. Denies any suicidal tendencies. Ready to go home. Patient appears to be medically stable for transfer or discharge. Rosa Elena Meredith MD
== END 2018-03-17 10:42 | disposition home or self-care (01) ==
LOC: ER 16:12
DX: G40.909 Epilepsy, unspecified, not intractable, without status epilepticus (principal); T50.904A Poisoning by unspecified drugs, medicaments and biological substances, undetermined, initial encounter; F31.9 Bipolar disorder, unspecified; E87.6 Hypokalemia; S50.812A Abrasion of left forearm, initial encounter; W19.XXXA Unspecified fall, initial encounter; F11.10 Opioid abuse, uncomplicated; F90.9 Attention-deficit hyperactivity disorder, unspecified type; R45.6 Violent behavior; Z78.1 Physical restraint status; Z79.899 Other long term (current) drug therapy; Z88.8 Allergy status to other drugs, medicaments and biological substances
CPT/HCPCS: 99285; 36415; 80307 ×4; 85025; 81025; 80053; 81001; 70450; J3490

== ENCOUNTER 2018-06-22 15:59 | Emergency (ER) | payer MEDICAID ==
[2018-06-22 16:26] VITALS: BP 141/86
--- NOTE | 2018-06-22 18:06 | RADIOLOGY REPORT (SQ) ---
EXAM DESCRIPTION: ANKLE RIGHT COMPLETE COMPLETED DATE/TIME: 06/22/2018 5:51 pm REASON FOR STUDY: fall/pain COMPARISON: 07/27/2012 NUMBER OF VIEWS: Three views. TECHNIQUE: AP, lateral, and oblique radiographic images acquired of the right ankle. LIMITATIONS: None. FINDINGS: MINERALIZATION: Normal. BONES: No acute fracture or dislocation. Old small medial malleolar inferior avulsion. . JOINTS: Small joint effusion. SOFT TISSUES: Moderate lateral soft tissue swelling. No foreign body. OTHER: No other significant finding. IMPRESSION: No acute fracture or dislocation. Moderate soft tissue swelling. Small joint effusion. TECHNICAL DOCUMENTATION: JOB ID: [id number] [place]-72 2010 [employer]- All Rights Reserved Reading location - IP/workstation name: [email or web address]
[2018-06-22] MEDS ORDERED: ACETAMINOPHEN 325 MG TABLET PO ONE (18:28)
[2018-06-22] MEDS ORDERED: HYDROMORPHONE HCL INJ/PF 2 MG/ML AMPULE IM ONE (19:12)
--- NOTE | 2018-06-22 19:49 | ER Document Report ---
ED Extremity Problem, Lower - General Chief Complaint: Ankle Pain Stated Complaint: ANKLE/FOOT PAIN Time Seen by Provider: 06/22/18 18:36 Mode of Arrival: Ambulatory Information source: Patient Notes: 32-year-old female presented to ED for complaint of pain to her right ankle with swelling and bruising after she jumped off of a tractor yesterday heard a pop when she jumped off and has had severe pain since then. Patient states she has had a previous fracture to that ankle that she was supposed to have surgery. She never did. Patient is alert and oriented respirations regular and unlabored. Patient did walk to the room and was seen walking outside smoking also. TRAVEL OUTSIDE OF THE [place] IN LAST 30 DAYS: No - HPI Patient complains to provider of: Injury, Pain, Swelling Location: Ankle Occurred: Yesterday Where: Home, Outdoors Onset/Duration: Sudden, Persistent Quality of pain: Pressure, Sharp, Throbbing Severity: Severe Pain Level: 5 Context: Twisted Recent injury: Yes Associated symptoms: [place] a pop, Painful ambulation Exacerbated by: Hanging down, Movement, Walking Relieved by: Nothing - Related Data Allergies/Adverse Reactions: No Known Allergies Allergy (Unverified 06/22/18 16:11) Past Medical History - General Information source: Patient - Social History Smoking Status: Current Every Day Smoker Cigarette use (# per day): Yes - 2 Packs per day Chew tobacco use (# tins/day): No Smoking Education Provided: Yes - 4 minutes Frequency of alcohol use: None Drug Abuse: None Lives with: Spouse/Significant other Family History: Reviewed & Not Pertinent Patient has suicidal ideation: No Patient has homicidal ideation: No - Past Medical History Cardiac Medical History: Reports: Hx Hypertension Pulmonary Medical History: Reports: Hx Pneumonia - PTSD EENT Medical History: Reports: None Neurological Medical History: Reports: Hx Seizures - Epilepsy Endocrine Medical History: Reports: None Renal/ Medical History: Reports: None Malignancy Medical History: Reports: None GI Medical History: Reports: None Musculoskeletal Medical History: Reports Hx Musculoskeletal Trauma Skin Medical History: Reports None Psychiatric Medical History: Reports: Hx Attention Deficit Hyperactivity Disorder, Hx Bipolar Disorder Traumatic Medical History: Reports: Hx Fractures - Right ankle Infectious Medical History: Reports: None Surgical Hx: Negative - Immunizations Hx Diphtheria, Pertussis, Tetanus Vaccination: No Review of Systems - Review of Systems Constitutional: No symptoms reported EENT: No symptoms reported Cardiovascular: No symptoms reported Respiratory: No symptoms reported Gastrointestinal: No symptoms reported Genitourinary: No symptoms reported Female Genitourinary: No symptoms reported Musculoskeletal: Joint pain - Ankle, Ankle swelling - Bruising and pain Skin: No symptoms reported Hematologic/Lymphatic: No symptoms reported Neurological/Psychological: No symptoms reported Physical Exam - Vital signs Vitals: Temp Pulse Resp BP Pulse Ox 98.4 F 95 18 141/86 H 98 06/22/18 16:24 06/22/18 16:24 06/22/18 16:24 06/22/18 16:24 06/22/18 16:24 Interpretation: Normal - General General appearance: Appears well, Alert - HEENT Head: Normocephalic, Atraumatic Eyes: Normal Pupils: PERRL - Respiratory Respiratory status: No respiratory distress Chest status: Nontender Breath sounds: Normal Chest palpation: Normal - Cardiovascular Rhythm: Regular Heart sounds: Normal auscultation Murmur: No - Abdominal Inspection: Normal Distension: No distension Bowel sounds: Normal Tenderness: Nontender Organomegaly: No organomegaly - Back Back: Normal, Nontender - Extremities General upper extremity: Normal inspection, Nontender, Normal color, Normal ROM , Normal temperature General lower extremity: Normal temperature. No: Saul's sign Ankle: Tender, Ecchymosis, Edema, Limited ROM - Complains of severe pain with any movement or palpation to the ankle. No: Unable to bear weight - States she is unable to walk on her foot but she has been seen walking several times - Neurological Neuro grossly intact: Yes Cognition: Normal Orientation: AAOx4 [place] Coma Scale Eye Opening: Spontaneous [place] Coma Scale Verbal: Oriented [place] Coma Scale Motor: Obeys Commands Temple Coma Scale Total: 15 Speech: Normal Motor strength normal: LUE, RUE, LLE, RLE Sensory: Normal - Psychological Associated symptoms: Normal affect, Normal mood - Skin Skin Temperature: Warm Skin Moisture: Dry Skin Color: Normal Course - Re-evaluation Re-evalutation: 06/22/18 21:58 Patient was treated with 1 mg of Dilaudid before splint was applied due to her complaint of extreme pain whenever anybody moved or touched the ankle. After the ankle was splinted she had good peripheral pulses and she stated that it did help with the pain. She requested something to help her sleep for the next few days due to the pain in her ankle. She was given a prescription for Vistaril for her sleep. - Vital Signs Vital signs: Temp Pulse Resp BP Pulse Ox 98.4 F 95 18 141/86 H 98 06/22/18 16:24 06/22/18 16:24 06/22/18 16:24 06/22/18 16:24 06/22/18 16:24 - Diagnostic Test Radiology reviewed: Image reviewed, Reports reviewed Procedures - Immobilization Right Ankle Time completed: 19:49 Immobilizer type: Posterior ankle Performed by: PCT Post-Proc Neuro Vasc Exam: Normal Alignment checked and good: Yes Discharge - Discharge Clinical Impression: Right ankle sprain Qualifiers: Encounter type: initial encounter Involved ligament of ankle: unspecified ligament Qualified Code(s): S93.401A - Sprain of unspecified ligament of right ankle, initial encounter Condition: Stable Disposition: HOME, SELF-CARE Additional Instructions: SPRAINED ANKLE: Your sprained ankle results from stretching or tearing of the ligaments which support the ankle. This usually results from twisting the foot inward and under. The ligaments will require time and protection in order to heal properly. Many ankle sprains are quite disabling, and should be taken seriously. The usual treatment for an ankle sprain is cold packs; protection with tape , splints, or wraps; elevation; and staying off the ankle for at least a day. As the ankle improves, you can walk IF it's not painful to bear weight. Sports are best postponed until healing is complete. More serious sprains usually require strengthening exercises after early healing. Your physician has assessed the seriousness of the ligament injury to your ankle. However, the treatment may change, depending on how your ankle progresses. If further exams were recommended, it is important that you follow through. Call the doctor if your foot becomes numb, painful, or severely swollen. SPLINT PRECAUTIONS: A splint has been placed. This will protect the area while healing begins. Your problem does NOT normally require a cast. It MUST, however, be held still! Keep the splint on ALL THE TIME until instructed to remove it by the doctor. As you begin to use the area, be careful. You shouldn't do anything which causes discomfort -- you may disturb the injury even with the splint in place. After the initial period of rest and elevation, if splint does not prevent pain when you move, come back. You may require placement of a different splint , or a cast. If there is unexpected severe pain, or numbness, discoloration, or swelling beyond the splint, you should return at once. If you feel that the splint has broken or become loose, come back. USE OF CRUTCHES: The doctor has recommended that you not bear weight at this time. You will need to use crutches. Adjust the crutches so the tops come to about two inches under the armpit while you are standing upright. Use your hands -- not your armpits -- to support your weight. To get into a chair, support yourself with one crutch on the injured side. Hold the chair with the other hand, then lower yourself while putting all your weight on the good leg. Going up stairs is `good leg up, step up, then bring up crutches and bad leg.' Down stairs is `bad leg and crutches down, then bring good leg down.' If you develop numbness or swelling in an arm or hand, you are using the crutches incorrectly. Return if you are having any problems with the crutches. ICE & ELEVATION: Apply ice packs frequently against the painful area. Many different schedules are recommended, such as "20 minutes on, 20 minutes off" or "one hour ice, two hours rest." If you need to work, you may need to go longer between ice treatments. You should plan to have the area ice packed AT LEAST one- fourth of the time. The ice should be applied over the wrap, tape, or splint, or over a layer of cloth -- not directly against the skin. Some ice bags have a built-in cloth and can be put directly on the skin. Your injured part should be elevated as much as possible over the next 48 hours. Try to keep the injury above the level of the heart. Avoid use of the injured area. Elevation and rest will decrease the swelling. USE OF BPYN-SKN-ETKPZWZ IBUPROFEN: Ibuprofen (Advil, Nuprin, Medipren, Motrin IB) is a medication for fever and pain control. In addition, it has anti- inflammatory effects which may be beneficial, especially in the treatment of injuries. It's best to take ibuprofen with food. Persons with ulcer disease or allergy to aspirin should notify their physician of this before taking ibuprofen. Ibuprofen can be given every four to six hours, for a total of four doses daily. Age Pain or fever dose Antiinflammatory dose 6-8 yr 200 mg (1 tab) 200 mg (1 tab) 9-11 yr 200 mg (1 tab) 200-400 mg (1-2 tab) 11-14 yr 200-400 mg (1-2 tab) 400 mg (2 tab) 15-adult 400 mg (2 tab) 600 mg (3 tab) Pain Medication Injection You have received an injection of a pain medication. You should experience significant pain relief within 45 minutes. This drug is a narcotic - - it will impair your judgement, slow your reaction time and make you sleepy ( as well as relieve your pain). Narcotics also can cause nausea. You should not drive, work with machinery, or perform any task requiring mental alertness until all effects of the medication are gone -- six to eight hours. Do not take any alcohol, or sedatives, and do not take any other medication without checking with your physician. FOLLOW-UP CARE: If you have been referred to a physician for follow-up care, call the physician s office for an appointment as you were instructed or within the next two days. If you experience worsening or a significant change in your symptoms, notify the physician immediately or return to the Emergency Department at any time for re-evaluation. Prescriptions: Hydroxyzine Pamoate [Vistaril 50 mg Capsule] 50 - 100 mg PO HSP PRN #14 capsule PRN Reason: Forms: Smoking Cessation Education, Elevated Blood Pressure Referrals: BEN CHANCE DO [ACTIVE STAFF] - Follow up as needed
== END 2018-06-22 20:30 | disposition home or self-care (01) ==
LOC: ER 15:59
DX: S93.401A Sprain of unspecified ligament of right ankle, initial encounter (principal); X50.9XXA Other and unspecified overexertion or strenuous movements or postures, initial encounter; Y93.39 Activity, other involving climbing, rappelling and jumping off; Y92.009 Unspecified place in unspecified non-institutional (private) residence as the place of occurrence of the external cause; F17.210 Nicotine dependence, cigarettes, uncomplicated; Z71.6 Tobacco abuse counseling; I10 Essential (primary) hypertension; Z87.81 Personal history of (healed) traumatic fracture; Z91.19 Patient's noncompliance with other medical treatment and regimen
CPT/HCPCS: 99406; 99283; 96372; 73610; 29515; J3490; J1170

== ENCOUNTER 2018-09-30 22:34 | Emergency (ER) | payer OTHER, MEDICAID ==
[2018-10-01] MEDS ORDERED: HYDROCODONE/ACETAMINOPHEN 5-325 MG (6 TAB/ER DISP) PO PRN (01:00)
[2018-10-01] MEDS ORDERED: KETOROLAC TROMETHAMINE 60 MG/2 ML SDV IM ONE (01:00)
[2018-10-01] MEDS ORDERED: ACETAMINOPHEN 325 MG TABLET PO ONE (01:00)
[2018-10-01] MEDS ORDERED: LIDOCAINE 5% (700 MG) TRANSDERMAL ADH..PATCH TP ONE (01:00)
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
== END 2018-10-01 01:41 | disposition home or self-care (01) ==
LOC: ER 22:34
DX: M54.89 Other dorsalgia (principal); M25.511 Pain in right shoulder; M25.512 Pain in left shoulder; M25.559 Pain in unspecified hip; V49.60XA Unspecified car occupant injured in collision with unspecified motor vehicles in traffic accident, initial encounter; V49.40XA Driver injured in collision with unspecified motor vehicles in traffic accident, initial encounter; F17.200 Nicotine dependence, unspecified, uncomplicated; I10 Essential (primary) hypertension
CPT/HCPCS: 99283; 96372; J1885